=== PATIENT | female | born 1985 | race Caucasian/White ===

== ENCOUNTER 2017-07-13 10:49 | Outpatient (CLI) | payer BC ==
[~2017-07-13] VITALS: Ht 172.7 cm; Wt 130.9 kg
[2017-07-13] MEDS ORDERED: PRENATAL TABLE1 EAC3 PO (11:13)
[2017-07-13] MEDS ORDERED: SYNTHROID75 MCG PO (11:14)
[2017-07-13] MEDS ORDERED: CHILD ASPIRIN81 M1 PO (11:14)
[2017-07-13 11:22] VITALS: BP 106/53
[2017-07-13 12:39] VITALS: BP 112/57
== END 2017-07-13 13:25 | disposition home or self-care (01) ==
LOC: LDRP-OP 10:49 → 2WEST 10:50 → LDRP-OP 09-03 10:34
DX: O36.8130 Decreased fetal movements, third trimester, not applicable or unspecified (principal); Z3A.37 37 weeks gestation of pregnancy; O99.283 Endocrine, nutritional and metabolic diseases complicating pregnancy, third trimester; E03.9 Hypothyroidism, unspecified
CPT/HCPCS: 59025; G0378

== ENCOUNTER 2017-07-20 13:00 | Outpatient (CLI) | payer BC ==
[~2017-07-20 13:00] MED LIST: CHILD ASPIRIN81 M1 PO; PRENATAL TABLE1 EAC3 PO; SYNTHROID75 MCG PO
[2017-07-20 13:45] VITALS: BP 130/66
[2017-07-20] MEDS ORDERED: AMBIEN5 MG PO (14:48)
== END 2017-07-20 14:50 | disposition home or self-care (01) ==
LOC: LDRP-OP 13:00 → 2WEST 13:01 → LDRP-OP 08-23 13:49
DX: O36.8130 Decreased fetal movements, third trimester, not applicable or unspecified (principal); O99.89 Other specified diseases and conditions complicating pregnancy, childbirth and the puerperium; G89.29 Other chronic pain; M54.9 Dorsalgia, unspecified; Z3A.38 38 weeks gestation of pregnancy
CPT/HCPCS: 59025; G0378

== ENCOUNTER 2017-07-27 07:20 | Inpatient (IN) | payer BC ==
[~2017-07-27] VITALS: Ht 170.2 cm; Wt 130.9 kg
[2017-07-27] VITALS (22 sets, daily range): BP systolic 107–159; BP diastolic 55–84
[~2017-07-27 07:20] MED LIST changes: +AMBIEN5 MG PO
[2017-07-27] MEDS ORDERED: TYLENOL EXTRA500 MG PO (08:08)
[2017-07-27 08:59] LABS: BASOPHIL (%) 0.2 % (0-1); EOSINOPHIL (%) 1.2 % (0-5); EOSINOPHIL COUNT 0.1 K/uL (0-0.3); HEMATOCRIT 33.6 % (36.0-46.0); HEMOGLOBIN 11.5 G/DL (11.9-15.5); IMMATURE GRANULOCYTE (%) 0.3 % (0.0-0.7); LYMPHOCYTE (%) 16.2 % (15-42); LYMPHOCYTE COUNT 1.5 K/uL (1.0-2.8); MCH 31.3 PG (29.0-34.0); MCHC 34.2 G/DL (30.0-36.0); MCV 91.3 FL (83-99); MONOCYTE (%) 5.8 % (3-12); MONOCYTE COUNT 0.5 K/uL (0-0.8); NEUTROPHIL (%) 76.3 % (45-76); NEUTROPHIL COUNT 6.9 K/uL (1.8-6.4); PLATELET COUNT 211 K/uL (156-360); RBC DIS.WIDTH-SD 42.5 % (39-53); RED BLOOD COUNT 3.68 M/uL (3.80-5.20)
[2017-07-27] MEDS ORDERED: IBUPROFEN800 MG PO (23:37)
[2017-07-28] VITALS (7 sets, daily range): BP systolic 92–126; BP diastolic 45–70
[2017-07-29 07:47] VITALS: BP 111/65
[2017-07-29] MEDS ORDERED: BREAST PUMP MC (10:35)
== END 2017-07-29 14:03 | disposition home or self-care (01) | DRG 775 ==
LOC: LDRP-OP → 2WEST 07:21 → LDRP-OP 21:53 → 2WEST 23:13 → LDRP-OP 09-02 18:31
PROVIDERS: Advanced Practice Midwife
DX: O99.284 Endocrine, nutritional and metabolic diseases complicating childbirth (principal); O99.214 Obesity complicating childbirth; E66.9 Obesity, unspecified; E03.9 Hypothyroidism, unspecified; Z37.0 Single live birth; Z68.30 Body mass index [BMI] 30.0-30.9, adult; Z3A.39 39 weeks gestation of pregnancy
CPT/HCPCS: 85025; J0595; J2405; J7120